=== PATIENT | male | born 1995 | race Two or more races ===

== ENCOUNTER 2018-06-23 09:20 | Emergency (ER) | payer OTHER | END 2018-06-23 10:59 | disposition home or self-care (01) | LOC: M ED 09:20 | DX: S39.012A Strain of muscle, fascia and tendon of lower back, initial encounter (principal); V48.5XXA Car driver injured in noncollision transport accident in traffic accident, initial encounter; Y92.410 Unspecified street and highway as the place of occurrence of the external cause; M54.5 Low back pain | CPT/HCPCS: 72110 ==

== ENCOUNTER 2018-11-11 14:08 | Emergency (ER) | payer OTHER ==
[~2018-11-11] VITALS: Ht 175.3 cm; Wt 93.2 kg
[~2018-11-11 14:08] MED LIST: CYCL10TA PO; NAPR-885 PO
[2018-11-11 14:09] VITALS: BP 121/67
[2018-11-11] MEDS ORDERED: ACET-683 PO (14:13)
--- NOTE | 2018-11-11 14:47 | REP ---
Right elbow for views : There is no fracture or dislocation. Mineralization and joint spaces are normal. There are no calcifications or foreign bodies. Impression: Negative right elbow . Electronically Signed by Fredi Estes MD 11/11/2018 02:39 P
== END 2018-11-11 15:06 | disposition home or self-care (01) ==
LOC: M ED 14:08
DX: S50.01XA Contusion of right elbow, initial encounter (principal); X58.XXXA Exposure to other specified factors, initial encounter; Y92.89 Other specified places as the place of occurrence of the external cause; D55.0 Anemia due to glucose-6-phosphate dehydrogenase [G6PD] deficiency

== ENCOUNTER 2019-04-26 10:57 | Emergency (ER) | payer OTHER ==
[~2019-04-26] VITALS: Ht 175.3 cm; Wt 96.3 kg
[~2019-04-26 10:57] MED LIST changes: +ACET-683 PO
[2019-04-26 11:57] LABS: BASO % 0.2 % (0.0-1.0); EOS % 0.2 % (0.0-3.0); HEMATOCRIT 46.8 % (42.0-52.0); HEMOGLOBIN 16.2 g/dl (13.5-17.5); LYMPH # 2.5 10^3/uL (1.5-6.5); LYMPH % 23.9 % (24.0-44.0); MEAN CORPUSCULAR HEMOGLOBIN 32.1 pg (27.0-33.0); MEAN CORPUSCULAR HGB CONC 34.6 g/dl (32.0-36.5); MEAN CORPUSCULAR VOLUME 92.7 fl (80.0-96.0); MONO # 0.5 10^3/uL (0.0-0.8); NEUTROPHILS # 7.4 10^3/uL (1.8-7.7); NEUTROPHILS % 70.4 % (36.0-66.0); PLATELET COUNT, AUTOMATED 326 10^3/uL (150-450); RED BLOOD COUNT 5.05 10^6/uL (4.30-6.10); WHITE BLOOD COUNT 10.4 10^3/uL (4.0-10.0)
[2019-04-26 12:27] LABS: ALBUMIN 4.7 GM/DL (3.2-5.2); ALT/SGPT 40 U/L (12-78); BILIRUBIN,DIRECT 0.3 MG/DL (0.0-0.2); BLOOD UREA NITROGEN 11 MG/DL (7-18); CALCIUM LEVEL 10.1 MG/DL (8.5-10.1); CARBON DIOXIDE LEVEL 28 MEQ/L (21-32); CHLORIDE LEVEL 105 MEQ/L (98-107); CREATININE FOR GFR 1.07 MG/DL (0.70-1.30); GLOMERULAR FILTRATION RATE > 60.0 (>60); GLUCOSE, FASTING 99 MG/DL (70-100); LIPASE 88 U/L (73-393); POTASSIUM SERUM 4.3 MEQ/L (3.5-5.1); SODIUM LEVEL 139 MEQ/L (136-145); TOTAL PROTEIN 8.2 GM/DL (6.4-8.2)
[2019-04-26 15:44] VITALS: BP 132/87
[2019-04-26] MEDS ORDERED: SUCRALFATE SUSP 1GM/10ML UD PO ONE (15:45)
[2019-04-26] MEDS ORDERED: ONDANSETRON 4 MG ORAL DISINTEGRATING TAB (Q0162 PER 1MG) PO ONE (15:45)
[2019-04-26] MEDS ORDERED: PANTOPRAZOLE 40MG TAB (PROTONIX) PO ONE (15:45)
[2019-04-26] MEDS ORDERED: PANT40TA3 PO (15:55)
[2019-04-26] MEDS ORDERED: SUCR1SS PO (15:55)
== END 2019-04-26 16:15 | disposition home or self-care (01) ==
LOC: M ED 10:57
DX: K52.1 Toxic gastroenteritis and colitis (principal); F17.200 Nicotine dependence, unspecified, uncomplicated
CPT/HCPCS: 80048; 80076; 81001; 83690; 85025; 99283; Q0162

== ENCOUNTER 2019-05-26 07:29 | Emergency (ER) | payer OTHER ==
[~2019-05-26] VITALS: Ht 175.3 cm; Wt 93.2 kg
[~2019-05-26 07:29] MED LIST changes: +PANT40TA3 PO; +SUCR1SS PO
--- NOTE | 2019-05-26 09:37 | REP ---
CT LUMBAR SPINE: CT lumbar spine was performed in the axial plane with sagittal and coronal reconstruction images. There is no compression fracture or malalignment with normal lumbar lordosis. There is no spondylolysis or spondylolisthesis. Schmorl's node is seen along the superior endplate of L5. Disc spaces are well preserved. There is no spinal stenosis. I do not see evidence of neural foraminal narrowing. IMPRESSION: No fracture or dislocation. Electronically Signed by Fredi Matthew MD 05/27/2019 04:37 P
[2019-05-26 10:31] VITALS: BP 142/92
[2019-05-26] MEDS ORDERED: CYCL10TA PO (10:33)
== END 2019-05-26 10:39 | disposition home or self-care (01) ==
LOC: M ED 07:29
DX: R32 Unspecified urinary incontinence (principal); S39.012A Strain of muscle, fascia and tendon of lower back, initial encounter; Y92.84 Military training ground as the place of occurrence of the external cause; D55.0 Anemia due to glucose-6-phosphate dehydrogenase [G6PD] deficiency; Y99.1 Military activity; K21.9 Gastro-esophageal reflux disease without esophagitis; F17.210 Nicotine dependence, cigarettes, uncomplicated; F17.290 Nicotine dependence, other tobacco product, uncomplicated; F17.220 Nicotine dependence, chewing tobacco, uncomplicated